=== PATIENT | female | born 1990 | race Caucasian/White ===

== ENCOUNTER 2019-12-15 00:52 | Day surgery (SDC) | payer OTHER, SELFPAY ==
[2019-12-01 09:51] VITALS: BMI 20.4
--- NOTE | 2019-12-14 10:13 | PM.IMHP ---
H&P: HPI History of Present Illness Chief complaint: Healthy Woman's Exam With Anesthesia Narrative: Emeli Qureshi is a 29 year old female Who was admitted for exam under anesthesia and Pap smear. She is handicapped severely and cannot tolerate an exam in the office. Review of Systems Review of Systems: All systems reviewed & are unremarkable except as noted in HPI and below PMFSH Social History Social History Smoking status: Never smoker Alcohol intake: never Substance use: never Living arrangements: detention Occupation/Education: other Gender identity (if verbalized by the patient): Female Spiritual care concerns: No Agree to blood products: Yes Meds Home Medications and Allergies Home Medications Medication Instructions Recorded Confirmed Type alprazolam [Xanax] 0.5 mg FEEDING TUBE TID 12/01/19 12/01/19 History docusate sodium 33 mg FEEDING TUBE QAM 12/01/19 12/01/19 History gabapentin 200 mg FEEDING TUBE HS 12/01/19 12/01/19 History gabapentin [Neurontin] 100 mg FEEDING TUBE DAILY 12/01/19 12/01/19 History lactulose 15 ml FEEDING TUBE BID 12/01/19 12/01/19 History mirtazapine [Remeron] 15 mg FEEDING TUBE HS 12/01/19 12/01/19 History neomycin-polymyxin B-dexameth 1 drp OPHTHALMIC (EYE) QID 12/01/19 12/01/19 History [Maxitrol] omeprazole 40 mg FEEDING TUBE DAILY 12/01/19 12/01/19 History prednisolone acetate [Pred Forte] 1 drp OPHTHALMIC (EYE) HS 12/01/19 12/01/19 History sennosides [senna] 8.8 mg FEEDING TUBE BID 12/01/19 12/01/19 History tramadol 50 mg FEEDING TUBE BID 12/01/19 12/01/19 History Allergies Allergy/AdvReac Type Severity Reaction Status Date / Time No Known Allergies Allergy Unverified 12/01/19 09:32 Exam Const: General: no acute distress Eyes: General: appearance normal, both eyes and all related structures Neck: Neck: supple and no JVD Thyroid: thyroid normal Resp: Effort & Inspection: normal respiratory effort Auscultation: clear to auscultation bilaterally Cardio: Rate: regular rate Rhythm: regular rhythm GI: Inspection: non-distended GI Palp: Yes Soft to palpation, No Tenderness to palpation present (GI) and No Guarding due to palpation present (GI) Auscultation: normal bowel sounds Skin: General skin exam: no rashes or lesions noted Neuro: General: oriented to person ( Basically unresponsive to stimuli.) Speech: Abnormal speech present Gait exam (Neuro): Unable to assess gait Motor exam (neuro): Abnormal motor strength present and Abnormal muscle tone present Extrem: General: normal to inspection and no edema Assessment and Plan Additional Plan Impression: Complete disability. Plan: Exam under anesthesia and Pap
--- NOTE | 2019-12-15 06:46 | WPDHPUPDATE1 ---
History and Physical Update Update Date/Time: 12/15/19 06:46 History and Physical has been reviewed, including an updated exam of the patient. There are NO changes in the patient's condition. Risks, benefits, and alternatives have been discussed and questions answered. Patient agrees to proceed with procedure.
[2019-12-15 10:17] VITALS: BP 78/54; PULSE 83; RESP 18; TEMP 36.2; O2SAT 99
--- NOTE | 2019-12-15 11:34 | P.PNAN_ITS ---
Anes - Initial Pre Proc Eval Procedure: Operation Date: 12/15/19 12:00 Proposed Procedures p Vaginal Exam Under Anesthesia, PAP Smear - Panfilo Cantrell MD Date/Time: 12/15/19 11:34 Surgeon: Panfilo Cantrell MD Pre Op Diagnosis: Healthy Woman's Exam With Anesthesia Patient Data Age: 29 Gender: F Height: 4 ft 11 in Weight: 50.9 kg Last Vital Signs Temp 36.2 C L 12/15/19 10:17 Pulse 83 12/15/19 10:17 Resp 18 12/15/19 10:17 BP 78/54 L 12/15/19 10:17 Pulse Ox 99 12/15/19 10:17 Allergies Allergy/AdvReac Type Severity Reaction Status Date / Time No Known Allergies Allergy Unverified 12/15/19 10:20 Home Medications Medication Instructions Recorded Confirmed Type alprazolam [Xanax] 0.5 mg FEEDING TUBE TID 12/01/19 12/15/19 History docusate sodium 33 mg FEEDING TUBE QAM 12/01/19 12/15/19 History gabapentin 200 mg FEEDING TUBE HS 12/01/19 12/15/19 History gabapentin [Neurontin] 100 mg FEEDING TUBE DAILY 12/01/19 12/15/19 History lactulose 15 ml FEEDING TUBE BID 12/01/19 12/15/19 History mirtazapine [Remeron] 15 mg FEEDING TUBE HS 12/01/19 12/15/19 History neomycin-polymyxin B-dexameth 1 drp OPHTHALMIC (EYE) QID 12/01/19 12/15/19 History [Maxitrol] omeprazole 40 mg FEEDING TUBE DAILY 12/01/19 12/15/19 History prednisolone acetate [Pred Forte] 1 drp OPHTHALMIC (EYE) HS 12/01/19 12/15/19 History sennosides [senna] 8.8 mg FEEDING TUBE BID 12/01/19 12/15/19 History tramadol 50 mg FEEDING TUBE BID 12/01/19 12/15/19 History Patient hx anesthesia problems: none Family hx anesthesia problems: none PMFSH Past Medical History Medical History (Updated 12/15/19 @ 11:34 by Panfilo Wright MD) Cerebral palsy Social History Social History Smoking status: Never smoker Alcohol intake: never Substance use: never Living arrangements: assisted Occupation/Education: other Gender identity (if verbalized by the patient): Female Spiritual care concerns: No Agree to blood products: Yes Anes - Eval Final PreProcedure Day of Procedure 12/15/19 11:34 Patient weight: normal Heart: regular rate and rhythm Lungs: clear to auscultation Neurological: unresponsive Last oral intake: >/= 8 hours ASA classification: III Emergent: no Anesthetic plan: proceed Anesthesia type and monitoring: general (mask induction ) GIVS Other findings: severely impaired patient with CP Informed Consent: The patient's anesthetic plan and its attendant risks and benefits were discussed with the family/POA. Questions were solicited and answers provided to the satisfaction of the family/POA.
[2019-12-15 12:09] VITALS: BP 75/41; PULSE 78; RESP 9; TEMP 36.1; O2SAT 100
--- NOTE | 2019-12-15 12:12 | PM.PROC ---
Procedure Note - Detailed Date of procedure: 12/15/19 Pre-op diagnosis: Healthy Woman's Exam With Anesthesia Surgeon: Panfilo Cantrell MD Postop diagnosis: Exam under anesthesia Procedure: Pap and exam under anesthesia EBL: None Complications: None Anesthesia: G IV S Findings: Benign female genitalia Procedure: The patient was prepped and draped in the normal sterile fashion and placed in the dorsal lithotomy position. Under excellent IV sedation and a bivalve speculum was placed the cervix was noted to be small and a Pap smear was taken. A pelvic exam was undertaken and by manual manner. The uterus is noted to be small no adnexal masses were palpable. The patient was awakened. There were no complications
[2019-12-15 12:20] VITALS: BP 93/69; PULSE 81; RESP 11; O2SAT 100
[2019-12-15 12:30] VITALS: BP 116/69; PULSE 101; RESP 20; O2SAT 96
--- NOTE | 2019-12-15 12:48 | SUR.PHASEII ---
1227; FAMILY IN ROOM. PT BROUGHT TO OPR PER STRETCHER. LEFT IN STRETCHER. PT NONVERBAL. 1245; FAMILY GIVING TUBE FEEDING.
[2019-12-15 12:55] VITALS: BP 111/67; PULSE 97; RESP 20
== END 2019-12-15 13:00 | disposition home or self-care (01) ==
PROVIDERS: PCP Family Medicine; Visit Provider Obstetrics & Gynecology
PROC: 0U5B8ZZ Destruction of Endometrium, Via Natural or Artificial Opening Endoscopic (ICD-10-PCS; CPT 58563; principal; 2019-12-15 12:00)
DX: Z01.419 Encounter for gynecological examination (general) (routine) without abnormal findings (principal); G80.9 Cerebral palsy, unspecified
CPT/HCPCS: 57410; A9270

== ENCOUNTER 2021-01-06 01:16 | Day surgery (SDC) | payer OTHER, SELFPAY ==
--- NOTE | 2021-01-03 11:00 | P.HP_ITS ---
H&P: HPI History of Present Illness Date/Time: 01/03/21 11:00 Gino is a 30-year-old 0 with known charge syndrome who is admitted for exam under anesthesia. Her condition does not allow for exam in the office. She will undergo Pap and pelvic exam. Chief Complaint: patient with charge syndrome needing annual exam Review of Systems Review of Systems: All systems reviewed & are unremarkable except as noted in HPI and below PMFSH Past Medical History Medical History Cerebral palsy Social History Social History Smoking status: Never smoker Alcohol intake: never Substance use: never Living arrangements: skilled nursing Gender identity (if verbalized by the patient): Female Spiritual care concerns: No Agree to blood products: Yes Meds Home Medications and Allergies Home Medications Medication Instructions Recorded Confirmed Type docusate sodium See Rx Instructions .ROUTE .COMPLEX 12/01/19 12/29/20 History mirtazapine [Remeron] 15 mg FEEDING TUBE HS 12/01/19 12/29/20 History neomycin-polymyxin B-dexameth See Rx Instructions .ROUTE .COMPLEX 12/01/19 12/29/20 History [Maxitrol] omeprazole 20 mg FEEDING TUBE BID 12/01/19 12/29/20 History prednisolone acetate [Pred Forte] 1 drp OPHTHALMIC (EYE) HS 12/01/19 12/29/20 History sennosides [senna] 8.8 mg FEEDING TUBE BID 12/01/19 12/29/20 History tramadol 50 mg FEEDING TUBE BID 12/01/19 12/29/20 History medroxyprogesterone [Depo-Provera 150 mg IM [id number] 12/28/20 12/28/20 History Contraceptive] carboxymethylcellulose sodium 1 drp EACH EYE BID PRN 12/29/20 12/29/20 History [Artificial Tears (cmc)] clonazepam 0.5 mg FEEDING TUBE QAM 12/29/20 12/29/20 History clonazepam 1 mg FEEDING TUBE HS 12/29/20 12/29/20 History denosumab 60 mg SUBCUT [id number] 12/29/20 12/29/20 History lactose-reduced food with fibr See Rx Instructions .ROUTE .COMPLEX 12/29/20 12/29/20 History [Jevity 1.5 Jared] water See Rx Instructions .ROUTE .COMPLEX 12/29/20 12/29/20 History zinc oxide See Rx Instructions .ROUTE 12/29/20 12/29/20 History .COMPLEX PRN Allergies Allergy/AdvReac Type Severity Reaction Status Date / Time No Known Allergies Allergy Unverified 12/15/19 10:20 Assessment and Plan Additional Plan Impression: Female with CHARGE syndrome needing pelvic exam Plan: Exam under anesthesia and Pap
--- NOTE | 2021-01-06 05:57 | WPDHPUPDATE1 ---
History and Physical Update Update Date/Time: 01/06/21 05:57 History and Physical has been reviewed, including an updated exam of the patient. There are NO changes in the patient's condition. Risks, benefits, and alternatives have been discussed and questions answered. Patient agrees to proceed with procedure.
[2021-01-06 06:37] VITALS: PULSE 85; RESP 20; TEMP 37.2; O2SAT 100
--- NOTE | 2021-01-06 07:03 | P.PNAN_ITS ---
Anes - Initial Pre Proc Eval Procedure: Operation Date: 01/06/21 07:30 Proposed Procedures p Vaginal Exam Under Anesthesia With Pap Smear - Panfilo Cantrell MD Date/Time: 01/06/21 07:03 Surgeon: Panfilo Cantrell MD Pre Op Diagnosis: Charge Syndrome Patient Data Age: 30 Gender: F Height: 4 ft 11 in Weight: 43.4 kg Last Vital Signs Temp 99.0 F 01/06/21 06:37 Pulse 85 01/06/21 06:37 Resp 20 01/06/21 06:37 Pulse Ox 100 01/06/21 06:37 Allergies Allergy/AdvReac Type Severity Reaction Status Date / Time No Known Allergies Allergy Unverified 01/06/21 06:32 Home Medications Medication Instructions Recorded Confirmed Type docusate sodium See Rx Instructions .ROUTE .COMPLEX 12/01/19 12/29/20 History mirtazapine [Remeron] 15 mg FEEDING TUBE HS 12/01/19 12/29/20 History neomycin-polymyxin B-dexameth See Rx Instructions .ROUTE .COMPLEX 12/01/19 12/29/20 History [Maxitrol] omeprazole 20 mg FEEDING TUBE BID 12/01/19 12/29/20 History prednisolone acetate [Pred Forte] 1 drp OPHTHALMIC (EYE) HS 12/01/19 12/29/20 History sennosides [senna] 8.8 mg FEEDING TUBE BID 12/01/19 12/29/20 History tramadol 50 mg FEEDING TUBE BID 12/01/19 12/29/20 History medroxyprogesterone [Depo-Provera 150 mg IM [id number] 12/28/20 12/28/20 History Contraceptive] carboxymethylcellulose sodium 1 drp EACH EYE BID PRN 12/29/20 12/29/20 History [Artificial Tears (cmc)] clonazepam 0.5 mg FEEDING TUBE QAM 12/29/20 12/29/20 History clonazepam 1 mg FEEDING TUBE HS 12/29/20 12/29/20 History denosumab 60 mg SUBCUT [id number] 12/29/20 12/29/20 History lactose-reduced food with fibr See Rx Instructions .ROUTE .COMPLEX 12/29/20 12/29/20 History [Jevity 1.5 Jared] water See Rx Instructions .ROUTE .COMPLEX 12/29/20 12/29/20 History zinc oxide See Rx Instructions .ROUTE 12/29/20 12/29/20 History .COMPLEX PRN Patient hx anesthesia problems: none Family hx anesthesia problems: none PMFSH Past Medical History Medical History Cerebral palsy Social History Social History Smoking status: Never smoker Alcohol intake: never Substance use: never Living arrangements: intermediate Gender identity (if verbalized by the patient): Female Spiritual care concerns: No Agree to blood products: Yes Anes - Eval Final PreProcedure Day of Procedure 01/06/21 07:03 Patient weight: normal Heart: regular rate and rhythm Lungs: clear to auscultation Airway: Mallampati scale class III Neurological: alert and oriented Last oral intake: >/= 8 hours ASA classification: III Emergent: no Anesthetic plan: proceed Anesthesia type and monitoring: general GIVS (mask induction; IV if needed) and standard monitoring Informed Consent: The patient's anesthetic plan and its attendant risks and benefits were discussed with the patient/family/POA. Questions were solicited and answers provided to the satisfaction of the patient/family/POA.
--- NOTE | 2021-01-06 07:50 | P.OP_ITS ---
Procedure Note - Detailed Date of procedure: 01/06/21 Pre-op diagnosis: Charge Syndrome Surgeon: Panfilo Cantrell MD Postop diagnosis: Charge syndrome Procedure: Exam under anesthesia Anesthesia: IV sedation Complications: None Findings: The patient with charge syndrome. Virginal introitus. Small uterus and ovaries. Normal breast exam. Description of procedure: The patient was prepped draped normal sterile fashion placed in the dorsal lithotomy position. Under excellent mask ventilation patie nt underwent exam of the breasts and pelvic exam. The exam was completely normal was noted. A Pap smear was obtained there were no complications she was awakened and went to recovery in satisfactory condition
[2021-01-06 07:54] VITALS: BP 105/63; PULSE 62; RESP 16; TEMP 36.3; O2SAT 100
[2021-01-06 08:00] VITALS: O2SAT 100
[2021-01-06 08:06] VITALS: BP 98/66; PULSE 102; RESP 20; O2SAT 100
[2021-01-06 08:12] VITALS: PULSE 88; RESP 20; O2SAT 96
--- NOTE | 2021-01-06 08:24 | SUR.PHASEII ---
0812; MOTHER IN ROOM WITH PT. 0815; MOTHER GIVING TUBE FEEDING 0820; MOTHER AND TECH DRESSING PT.
== END 2021-01-06 08:33 | disposition home or self-care (01) ==
PROVIDERS: PCP Family Medicine; Visit Provider Obstetrics & Gynecology
PROC: 0U5B8ZZ Destruction of Endometrium, Via Natural or Artificial Opening Endoscopic (ICD-10-PCS; CPT 58563; principal; 2021-01-06 07:30)
DX: Z01.419 Encounter for gynecological examination (general) (routine) without abnormal findings (principal); Q89.8 Other specified congenital malformations; G80.8 Other cerebral palsy
CPT/HCPCS: 57410; A9270

== ENCOUNTER 2023-01-04 00:32 | Day surgery (SDC) | payer OTHER, SELFPAY ==
--- NOTE | 2022-12-26 16:01 | PC.NURSE ---
Report to the Outpatient Waiting Room, entrance under the green pavilion located off [facility], at time 11:30 on date 01/04/23. Planned Procedure Time: 1:30. Time changes happen often and if your time is changed the preop area will call you the afternoon before. - You and your visitor will be asked to self-screen and do not enter if you have any COVID symptoms. - Only one visitor is requested with a max of two and NO children visitors are allowed at this time. - The patient visitor may be requested to leave or wait in car when not with patient due to distancing restrictions. - A mask is optional within the hospital at this time. Patients may have clear liquids (water, carbonated beverages, clear teas, apple juice) until 3 hours prior to surgery (10:30) with a maximum of 20 ounces. - No food from midnight until time of surgery Take the following medications with a SIP of water the morning of surgery: CLONAZEPAM, LEVOTHYROXINE, MIRTAZAPINE, RISPERIDONE, TRAMADOL DO NOT STOP ANY OF YOUR OTHER PRESCRIPTION MEDICATIONS PRIOR TO SURGERY EXCEPT THE FOLLOWING Medications to discontinue per physician: N/A Date to take last dose: N/A Please no make-up, nail mohawk, hairspray, perfume, deodorant, or body powder the day of surgery. No jewelry (including any body piercings) or valuables the day of surgery, leave them at home. Please take a shower or bath the night before, or the morning of, surgery with an antibacterial soap. Wear comfortable, loose fitting clothing. Children are encouraged to wear pajamas. - Jewelry must be removed prior to entering the operating room. Rings and piercings that are not removed may be cut off. - The hospital will not accept responsibility for valuables. - Please leave all valuables, including medications, at home the day of surgery. If you are going home after surgery, a licensed dolly driver must drive you home. - NO public transportation without another adult if you receive anesthesia. - We recommend that an adult stay with you for 24 hours following discharge. - We also recommend that you do not drive, make important decision, drink alcoholic beverages, or take any drugs that were not prescribed by your health care provider for at least 24 hours after your discharge time. Follow any additional instructions given to you from your surgeon. If you or anyone in your household have experienced Covid symptoms in the past week, please notify your surgeon or the nurse liaison at the phone number below for possible testing. Telephone instructions given to MOM - MELANIE and asked if any additional questions and then verbalized understanding AND FAXED TO [facility]. Patient advised to call surgeon office or pre surgery nurse liaison [phone] if any additional questions.
--- NOTE | 2023-01-01 07:49 | PM.IMHP ---
H&P: HPI History of Present Illness Date/Time: 01/01/23 07:49 Chief Complaint: This is a handicapped patient who is here for an exam under anesthesia and Pap smear Narrative: This is a 32-year-old female who is here for exam under anesthesia and Pap. She is severely disabled and then this was unable to be done in the office. [facility] Past Medical History Medical History Cerebral palsy Social History Social History Smoking status: Never smoker Alcohol intake: never Substance use: never Substance use type: does not use Living arrangements: penitentiary Additional living arrangements comments: [facility] Occupation/Education: other Gender identity (if verbalized by the patient): Female Spiritual care concerns: No Agree to blood products: Yes Meds Home Medications and Allergies Home Medications Medication Instructions Recorded Confirmed Type docusate sodium 50 mg/15 mL oral See Rx Instructions .Route .COMPLEX 12/01/19 12/26/22 History syrup omeprazole 40 mg capsule,delayed 20 mg feeding tube BID 12/01/19 12/26/22 History release sennosides 8.8 mg/5 mL oral syrup 8.8 mg feeding tube BID 12/01/19 12/26/22 History (senna) tramadol 50 mg tablet 50 mg feeding tube BID 12/01/19 12/26/22 History medroxyprogesterone 150 mg/mL 150 mg IM [id number] 12/28/20 12/26/22 History intramuscular suspension carboxymethylcellulose sodium 1 % 1 drp EACH EYE BID PRN Dry Eyes 12/29/20 12/26/22 History eye drops (Artificial Tears (carboxymethylcellulose)) clonazepam 0.5 mg tablet 0.5 mg feeding tube QAM 12/29/20 12/26/22 History clonazepam 1 mg tablet 1 mg feeding tube HS 12/29/20 12/26/22 History denosumab 60 mg/mL subcutaneous 60 mg subcut [id number] 12/29/20 12/26/22 History syringe levothyroxine 25 mcg tablet 25 mcg feeding tube DAILY 12/26/22 12/26/22 History mirtazapine 30 mg tablet 30 mg feeding tube DAILY 12/26/22 12/26/22 History risperidone 0.5 mg tablet 0.5 mg feeding tube DAILY 12/26/22 12/26/22 History zinc oxide 20 % topical ointment 1 applic topical TID 12/26/22 12/26/22 History Allergies Allergy/AdvReac Type Severity Reaction Status Date / Time No Known Allergies Allergy Unverified 12/26/22 11:41 Exam Const: General: no acute distress Nutritional Appearance: average body habitus Resp: Effort & Inspection: normal respiratory effort Cardio: Rate: regular rate Rhythm: regular rhythm Heart sounds: S1 normal heart sound present and S2 normal heart sound present GI: Inspection: normal to inspection Assessment and Plan Assessment and plan (1) Gravely disabled: Status: Acute Plan Patient will undergo exam under anesthesia and Pap smear
--- NOTE | 2023-01-04 06:27 | WPDHPUPDATE1 ---
History and Physical Update Update Date/Time: 01/04/23 06:27 History and Physical has been reviewed, including an updated exam of the patient. There are NO changes in the patient's condition. Risks, benefits, and alternatives have been discussed and questions answered. Patient agrees to proceed with procedure.
[2023-01-04 11:30] VITALS: RESP 14; TEMP 37.5
--- NOTE | 2023-01-04 11:48 | SUR.PREOP ---
mother here and able to assist with pt to dress into gown. unable to obtain bp due to agitation.respirations easy ,skin warm,pink.use of padded siderails for safety.
[2023-01-04 11:54] VITALS: BMI 24.8
--- NOTE | 2023-01-04 12:52 | WPDANESEPPF ---
Anes - Initial Pre Proc Eval Procedure: Operation Date: 01/04/23 13:30 Proposed Procedures p Examination Under Anesthesia for Pap Smear - Panfilo White MD Date/Time: 01/04/23 12:52 Surgeon: Panfilo White MD Pre Op Diagnosis: pt is disable Patient Data Age: 32 Gender: F Height: 1.5 m Weight: 55.81 kg Last Vital Signs Temp 37.5 C 01/04/23 11:30 Resp 14 01/04/23 11:30 Allergies Allergy/AdvReac Type Severity Reaction Status Date / Time No Known Allergies Allergy Unverified 01/04/23 11:46 Home Medications Medication Instructions Recorded Confirmed Type docusate sodium 50 mg/15 mL oral See Rx Instructions .Route .COMPLEX 12/01/19 01/04/23 History syrup omeprazole 40 mg capsule,delayed 20 mg feeding tube BID 12/01/19 01/04/23 History release sennosides 8.8 mg/5 mL oral syrup 8.8 mg feeding tube BID 12/01/19 01/04/23 History (senna) tramadol 50 mg tablet 50 mg feeding tube BID 12/01/19 01/04/23 History medroxyprogesterone 150 mg/mL 150 mg IM [id number] 12/28/20 12/26/22 History intramuscular suspension carboxymethylcellulose sodium 1 % 1 drp EACH EYE BID PRN Dry Eyes 12/29/20 12/26/22 History eye drops (Artificial Tears (carboxymethylcellulose)) clonazepam 0.5 mg tablet 0.5 mg feeding tube QAM 12/29/20 01/04/23 History clonazepam 1 mg tablet 1 mg feeding tube HS 12/29/20 01/04/23 History denosumab 60 mg/mL subcutaneous 60 mg subcut [id number] 12/29/20 12/26/22 History syringe levothyroxine 25 mcg tablet 25 mcg feeding tube DAILY 12/26/22 01/04/23 History mirtazapine 30 mg tablet 30 mg feeding tube DAILY 12/26/22 01/04/23 History risperidone 0.5 mg tablet 0.5 mg feeding tube DAILY 12/26/22 01/04/23 History zinc oxide 20 % topical ointment 1 applic topical TID 12/26/22 01/04/23 History Patient hx anesthesia problems: none Family hx anesthesia problems: none Results Review: All pre-operative results and documents have been reviewed as part of the pre-operative evaluation. [facility] Past Medical History Medical History Cerebral palsy Social History Social History Smoking status: Never smoker Alcohol intake: never Substance use: never Substance use type: does not use Living arrangements: [facility] Additional living arrangements comments: [facility] MD Occupation/Education: other Gender identity (if verbalized by the patient): Female Spiritual care concerns: No Agree to blood products: Yes Anes - Eval Final PreProcedure Day of Procedure 01/04/23 12:52 Patient weight: normal Heart: regular rate and rhythm Lungs: decreased breath sounds Neurological: other Last oral intake: >/= 8 hours ASA classification: IV Emergent: no Anesthetic plan: proceed Anesthesia type and monitoring: general and standard monitoring Results Review: All pre-operative results and documents have been reviewed as part of the pre-operative evaluation. Informed Consent: The patient's anesthetic plan and its attendant risks and benefits were discussed with the patient/family/POA. Questions were solicited and answers provided to the satisfaction of the patient/family/POA.
[2023-01-04 13:21] VITALS: BP 128/93; PULSE 68; RESP 12; TEMP 36.8; O2SAT 100
--- NOTE | 2023-01-04 13:22 | W.PM.PROC2 ---
Procedure Note - Detailed Date of Procedure 01/04/23 Pre-op Diagnosis pt is disabled Post-op Diagnosis Same Procedure Performed Exam under anesthesia and Pap smear Surgeon Panfilo White MD Anesthesia MAC Indications this is a 32-year-old disabled female for a Pap smear and exam under anesthesia Findings virginal vagina. Small uterus. Unpalpable ovaries Description of Procedure patient is prepped draped in normal sterile fashion placed in dorsal lithotomy position under excellent IV sedation a bivalve speculum was placed in the vagina Pap smear was taken. The exam under anesthesia noted uterus to be small no adnexal masses were present and the procedure was terminated the patient was awakened went to recovery in satisfactory condition. All sponge, needle, instrument counts were correct.ap smear was performed Drains No Packing No Pathology Other ( Pap smear was performed and taken to the office) Complications No immediate complications Condition Stable Disposition PACU
[2023-01-04 13:35] VITALS: BP 113/65; PULSE 89; RESP 20; O2SAT 97
[2023-01-04 13:38] VITALS: BP 113/65; PULSE 89; RESP 20; O2SAT 100
[2023-01-04 13:41] VITALS: PULSE 89; RESP 20; O2SAT 99
== END 2023-01-04 14:06 | disposition home or self-care (01) ==
PROVIDERS: Visit Provider Obstetrics & Gynecology
PROC: 0U5B8ZZ Destruction of Endometrium, Via Natural or Artificial Opening Endoscopic (ICD-10-PCS; CPT 58563; principal; 2023-01-04 13:30)
DX: Z01.419 Encounter for gynecological examination (general) (routine) without abnormal findings (principal); G80.9 Cerebral palsy, unspecified
CPT/HCPCS: 88142; 57410; J2250; J3010